=== PATIENT | male | born 1985 | race Caucasian/White ===

== ENCOUNTER 2016-09-18 18:46 | Emergency (ER) | payer BC ==
[~2016-09-18] VITALS: Ht 182.9 cm; Wt 78.0 kg
--- NOTE | ~2016-09-18 | CR127 ---
[facility] A Service of [facility] & [facility] RADIOLOGY TEXT RESULTS PATIENT: MATEO AYON LOCATION: CFTX : 81 UNIT #: [id number] AGE: [address]: Adrian Allen SEX: M ORDER DR: [id number] [facility] [address] [place], [place] [address] [id number] MR#: [id number] Acc #: [id number] NAME: MATEO AYON : 1985 SEX: M STUDY DATE/TIME: 09/18/2016 20:40 UNIT: [facility] ROOM: STUDY DESCRIPTION: CR Foot Complete Min 3 View Rt Attending Physician: Adrian Allen P.A.-C. Ordering Physician: Adrian Allen P.A.-C. Primary Care Physician: Primary Care Physician No MEDICAL IMAGING REPORT This report is preliminary unless electronic signature is present EXAM Right foot 3 views HISTORY Rolled foot while playing basketball today. FINDINGS 3 views of the right foot demonstrates no fracture dislocation. Minimal degenerative changes first MTP joint with a developing medial bunion. IMPRESSION 1. No acute fracture or dislocation. 2. Early degenerative changes first MTP joint with developing bunion. Dictated by... Hemanth Armenta M.D. THIS IS AN ELECTRONICALLY VERIFIED REPORT Hemanth Armenta M.D. at 09/19/2016 2:04 PM ZENY/morena TD: 09/18/2016 23:17 JOB #: [id number] MEDICAL IMAGING REPORT Page 1 of 1 COPY
[~2016-09-18 18:46] MED LIST: AMOXIL500 M1 PO; ZYRTEC-D T1 TAB.SR1 PO
== END 2016-09-18 21:40 | disposition home or self-care (01) ==
LOC: CFTX 18:46 → CED 18:46 → CFTX 20:23
DX: S93.601A Unspecified sprain of right foot, initial encounter (principal); Z79.899 Other long term (current) drug therapy; Y93.67 Activity, basketball; Y92.830 Public park as the place of occurrence of the external cause
CPT/HCPCS: 29540; 73630; 99283